=== PATIENT | male | born 1995 ===

== ENCOUNTER 2018-10-11 16:11 | Emergency (ER) | payer SELFPAY ==
[2018-10-11 16:27] VITALS: RESP 20; TEMP 98.4
[2018-10-11] MEDS ORDERED: Tdap Vaccine 0.5 ml Vial (10-64 yrs) IM ONE ×2 (16:51→17:00)
[2018-10-11] MEDS ORDERED: Lidocaine 1% Inj (20ml) INFIL ONE (16:51)
--- NOTE | 2018-10-11 16:52 | C.PDOC ---
History Of Present Illness 23 y/o male presents to the ER for evaluation of laceration to left index finger which occured today. Patient states that the he was cutting open a box while he was at work and he accidentally cut his finger. Patient rates the pain 5/10. He notes that he is able to move the finger. Denies weakness, numbness, and recent tetanus vaccination. Chief Complaint (Nursing): Abnormal Skin Integrity History Per: Patient History/Exam Limitations: no limitations Onset/Duration Of Symptoms: Hrs Current Symptoms Are (Timing): Still Present Severity: Moderate Past Medical History Reviewed: Historical Data, Nursing Documentation, Vital Signs Vital Signs: Last Vital Signs Temp 98.4 F 10/11/18 16:22 Pulse 97 H 10/11/18 16:22 Resp 20 10/11/18 16:22 BP 134/84 10/11/18 16:22 Pulse Ox 100 10/11/18 16:22 - Medical History PMH: No Chronic Diseases Other Surgeries: Hx of thyroidectomy Family History: States: No Known Family Hx - Social History Hx Alcohol Use: Yes Hx Substance Use: No - Immunization History Hx Tetanus Toxoid Vaccination: No Hx Influenza Vaccination: No Hx Pneumococcal Vaccination: No Review Of Systems Constitutional: Negative for: Fever, Chills Skin: Positive for: Other (laceration to left index finger) Neurological: Negative for: Weakness, Numbness Physical Exam - Physical Exam Appears: Non-toxic, No Acute Distress Skin: Normal Color, Warm, Dry Head: Atraumatic, Normacephalic Eye(s): bilateral: Normal Inspection Chest: Symmetrical Cardiovascular: Rhythm Regular Respiratory: Normal Breath Sounds, No Wheezing Extremity: Normal ROM, Tenderness (left index), Capillary Refill (< 2 seconds on left hand), Deformity (2 inch irregular laceration to distal tip of left index finger), Other (active bleeding) Pulses: Left Radial: Normal, Right Radial: Normal Neurological/Psych: Oriented x3, Normal Speech, Normal Motor, Normal Sensation ED Course And Treatment O2 Sat by Pulse Oximetry: 100 (RA) Pulse Ox Interpretation: Normal - Other Rad left index finger X-Ray: Viewed By Me, Read By Radiologist Interpretation: Accession No. : [id number]. Patient Name / ID : DEVYN KEARNS / [id number]. Exam Date : 10/11/2018 17:28:19 ( Approved ). Study Comment : Sex / Age : M / 23Y. Creator : Renetta Tate MD. Dictator : Renetta Tate MD. Campaign Consultant : Emulsion Operator : Renetta Tate MD. Approver2 : Report Date : 10/11/2018 18:09:04. My Comment : . Date of service: 10/11/2018. PROCEDURE: Left Index finger radiographs. HISTORY: s/p trauma. COMPARISON: None available. TECHNIQUE: AP radiograph of the left hand, as well as spot oblique and lateral images of index finger were obtained. 4 views obtained. FINDINGS: Fracture/debris at the level of the 2nd digit lateral aspect DIP level. Associated laceration and swelling. Remainder of the left hand (as seen on the AP view) grossly intact. IMPRESSION: Fracture/debris at the level of the 2nd digit lateral aspect DIP level. Associated laceration and swelling. Laceration - Laceration Repair Left Index Finger Wound Length (In cm): 5 cm Description Of Wound: Irregular Wound Cleansed With: Betadine, Sterile Saline Anesthesia: Lidocaine 1% Wound Examination: Irrigated With Saline, No FB With Wound Exploration Wound Closure: Suture (10) Suture Technique And Material Used: Interrupted, Nylon (5-0 nylon) Wound Complexity: Complex Disposition Counseled Patient/Family Regarding: Studies Performed, Diagnosis, Need For Followup, Rx Given - Disposition Referrals: Marlon Plaza MD [Staff Provider] - Disposition: HOME/ ROUTINE Disposition Time: 18:53 Condition: IMPROVED Additional Instructions: Please review handout instructions of Wound care, Laceration repair with Stitches, and Fracture of Finger Continue Keflex twice a day for 7 days Start Motrin as needed for pain Follow up with Hand specialist in 1-2 days to access fracture Return to ED if there are signs of infection and/or worsening pain Return in 10-14 days for suture removal Prescriptions: Cephalexin [Keflex] 500 mg PO BID #13 capsule Ibuprofen [Motrin] 600 mg PO Q8 PRN #30 tab PRN Reason: Pain, Moderate (4-7) Instructions: Wound Care (DC), Laceration Repair With Stitches (DC), Finger Fracture (DC) Forms: [facility] (Uruguayan), Work Excuse - Clinical Impression Clinical Impression: Laceration of finger of left hand, Avulsion fracture of distal phalanx of finger - PA / FIBER DRIER OPERATOR / Resident Statement MD/DO has reviewed & agrees with the documentation as recorded. - Scribe Statement The provider has reviewed the documentation as recorded by the Etelvina Chua Provider Attestation All medical record entries made by the Etelvina were at my direction and personally dictated by me. I have reviewed the chart and agree that the record accurately reflects my personal performance of the history, physical exam, medical decision making, and the department course for this patient. I have also personally directed, reviewed, and agree with the discharge instructions and disposition.
[2018-10-11] MEDS ORDERED: Lidocaine Hydrochloride 10 ML INJ ONE (17:00)
--- NOTE | 2018-10-11 18:12 | RAD ---
Date of service: 10/11/2018 PROCEDURE: Left Index finger radiographs. HISTORY: s/p trauma COMPARISON: None available. TECHNIQUE: AP radiograph of the left hand, as well as spot oblique and lateral images of index finger were obtained. 4 views obtained. FINDINGS: Fracture/debris at the level of the 2nd digit lateral aspect DIP level. Associated laceration and swelling. Remainder of the left hand (as seen on the AP view) grossly intact. IMPRESSION: Fracture/debris at the level of the 2nd digit lateral aspect DIP level. Associated laceration and swelling.
[2018-10-11 18:54] VITALS: BP 133/75; PULSE 78
[2018-10-11 18:55] VITALS: O2SAT 100
[2018-10-11] MEDS ORDERED: Bacitracin 500 Units/gm Oint Foilpak UD TOP ONE (18:57)
[2018-10-11] MEDS ORDERED: Bacitracin 500 Units/gm Oint Foilpak UD ONE (19:01)
== END 2018-10-11 19:17 | disposition home or self-care (01) ==
LOC: C.ER 16:11
DX: S61.211A Laceration without foreign body of left index finger without damage to nail, initial encounter (principal); W45.8XXA Other foreign body or object entering through skin, initial encounter; Y99.0 Civilian activity done for income or pay; Z23 Encounter for immunization

== ENCOUNTER 2018-10-18 15:03 | Emergency (ER) | payer OTHER ==
[2018-10-18 15:11] VITALS: BP 123/72; PULSE 96; RESP 17; TEMP 98.5; O2SAT 100
--- NOTE | 2018-10-18 15:17 | C.PDOC ---
Time Seen by Provider: 10/18/18 15:11 Chief Complaint (Nursing): Suture/Staple Removal Past Medical History Vital Signs: Last Vital Signs Temp 98.5 F 10/18/18 15:08 Pulse 96 H 10/18/18 15:08 Resp 17 10/18/18 15:08 BP 123/72 10/18/18 15:08 Pulse Ox 100 10/18/18 15:08 - Social History Hx Alcohol Use: Yes Hx Substance Use: No - Immunization History Hx Tetanus Toxoid Vaccination: Yes Hx Influenza Vaccination: No Hx Pneumococcal Vaccination: No ED Course And Treatment O2 Sat by Pulse Oximetry: 100 Disposition - Disposition
[2018-10-18] MEDS ORDERED: Bacitracin 500 Units/gm Oint Foilpak UD TOP ONE (15:30)
--- NOTE | 2018-10-18 15:45 | C.PDOC ---
History Of Present Illness 23 y/o male presents to the ER for suture removal from left 2nd finger. Patient states that he had laceration repair in [facility] ER on 10/11/18. Patient states he has been taking abx. Patient reports that he has been cleaning the wound 2x daily and he has been applying cream. He notes that were was come clear drainage which has stopped. Currently, patient denies having pain, fever, and chills. Time Seen by Provider: 10/18/18 15:11 Chief Complaint (Nursing): Suture/Staple Removal History Per: Patient History/Exam Limitations: no limitations Past Medical History Reviewed: Historical Data, Nursing Documentation, Vital Signs Vital Signs: Last Vital Signs Temp 98.5 F 10/18/18 15:08 Pulse 96 H 10/18/18 15:08 Resp 17 10/18/18 15:08 BP 123/72 10/18/18 15:08 Pulse Ox 100 10/18/18 15:08 - Medical History PMH: No Chronic Diseases Other Surgeries: Hx of surgeries Family History: States: No Known Family Hx - Social History Hx Alcohol Use: Yes Hx Substance Use: No - Immunization History Hx Tetanus Toxoid Vaccination: Yes Hx Influenza Vaccination: No Hx Pneumococcal Vaccination: No Review Of Systems Except As Marked, All Systems Reviewed And Found Negative. Constitutional: Negative for: Fever, Chills Physical Exam - Physical Exam Appears: Non-toxic, No Acute Distress Skin: Normal Color, Warm, Dry, Other (healing wound with sutures intact to distal dorsal left 2nd finger) Head: Atraumatic, Normacephalic Eye(s): bilateral: Normal Inspection Nose: Normal Oral Mucosa: Moist Neck: Supple Chest: Symmetrical Extremity: Normal ROM (left hand), No Tenderness, Capillary Refill (< 2 seconds), Swelling (mild swelling around the left 2nd finger) Pulses: Left Radial: Normal Neurological/Psych: Oriented x3, Normal Speech ED Course And Treatment O2 Sat by Pulse Oximetry: 100 (RA) Pulse Ox Interpretation: Normal Medical Decision Making Medical Decision Making: Old records from previous visit reviewed. 10 sutures were removed successfully by me. Bacitricin and sterile dressing was applied. Patient has been discharged with prescription for Keflex. Disposition - Disposition Referrals: [facility] [Outside] Disposition: HOME/ ROUTINE Disposition Time: 15:54 Condition: GOOD Additional Instructions: Follow up with the medical clinic within 2-3 days. Return if worsened. Prescriptions: Sulfamethoxazole/Trimethoprim [Bactrim DS 800 mg-160 mg] 1 tab PO BID #14 tab Instructions: Stitches Removal Forms: [email or web address] (Greek) - Clinical Impression Clinical Impression: Removal of suture - PA / CLOTH SHRINKER / Resident Statement MD/DO has reviewed & agrees with the documentation as recorded. - Scribe Statement The provider has reviewed the documentation as recorded by the Scribe Durga Chua Provider Attestation All medical record entries made by the Genibe were at my direction and personally dictated by me. I have reviewed the chart and agree that the record accurately reflects my personal performance of the history, physical exam, medical decision making, and the department course for this patient. I have also personally directed, reviewed, and agree with the discharge instructions and disposition.
[2018-10-18] MEDS ORDERED: Bacitracin 500 Units/gm Oint Foilpak UD ONE (16:12)
== END 2018-10-18 16:10 | disposition home or self-care (01) ==
LOC: C.ER 15:03
DX: Z48.02 Encounter for removal of sutures (principal)